=== PATIENT | female | born 1945 | race Caucasian/White ===

== ENCOUNTER 2017-04-11 14:38 | Emergency (ER) | payer MEDICARE, BC ==
[2017-04-11] MEDS: HYDROCODONE/APAP (5/325) TAB PO (16:15)
== END 2017-04-11 19:59 | disposition home or self-care (01) ==
LOC: FTE 14:38
DX: S42.211A Unspecified displaced fracture of surgical neck of right humerus, initial encounter for closed fracture (principal); E03.9 Hypothyroidism, unspecified; E11.9 Type 2 diabetes mellitus without complications; I10 Essential (primary) hypertension; I50.9 Heart failure, unspecified; W18.39XA Other fall on same level, initial encounter; Y92.9 Unspecified place or not applicable; Z79.84 Long term (current) use of oral hypoglycemic drugs
CPT/HCPCS: 72050; 73030-RT; 73562; 99284-25

== ENCOUNTER 2018-04-15 16:58 | Inpatient (IN) | payer MEDICARE, BC ==
[2018-04-15 18:23] LABS: ADD MAN DIFF? NO
[2018-04-15 18:29] LABS: ABNORMAL IP MESSAGE 1; BASOPHIL # 0.1 10^3/ul (0.0-0.1); BASOPHILS % 0.4 % (0.0-2.0); EOSINOPHILS % 0.2 % (0.0-7.0); HEMATOCRIT 33.8 % (37.0-47.0); HEMOGLOBIN 9.8 g/dl (12.0-16.0); LYMPHOCYTES # 0.7 10^3/ul (0.8-2.9); LYMPHOCYTES % 4.4 % (15.0-51.0); MEAN CORPUSCULAR HEMOGLOBIN 23.8 pg (29.0-33.0); MEAN PLATELET VOLUME 10.9 fl (7.4-10.4); MONOCYTE # 1.6 10^3/ul (0.3-0.9); MONOCYTES % 9.5 % (0.0-11.0); NEUTROPHIL # 14.3 10^3/ul (1.6-7.5); NEUTROPHILS % 84.9 % (39.0-77.0); PLATELET COUNT 418 10^3/UL (140-415); RED BLOOD COUNT 4.12 10^6/ul (4.20-5.40); RED CELL DISTRIBUTION WIDTH 19.5 % (11.5-14.5)
[2018-04-15 18:29] LABS: WHITE BLOOD COUNT 16.9 10^3/ul (4.8-10.8)
[2018-04-15] MEDS: ALBUTEROL 0.083% (NEB) 2.5 MG/3 ML AMP NEB (18:29)
[2018-04-15] MEDS: IPRATROPIUM (NEB) 0.5 MG/2.5 ML AMP NEB (18:29)
[2018-04-15 18:33] LABS: POSITIVE DIFF @See below
[2018-04-15] MEDS: ONDANSETRON 4 MG INJ IV (18:36)
[2018-04-15] MEDS: morphine 2 MG INJ IV (18:36)
[2018-04-15] MEDS: SOD CHLORIDE 0.9% 500 ML IV ×2 (18:36→22:43)
[2018-04-15 18:44] LABS: PROTIME 15.3 Sec (11.9-14.9); PT RATIO 1.2
[2018-04-15 18:45] LABS: PARTIAL THROMBOPLASTIN TIME 31.8 Sec (23.0-35.0)
[2018-04-15 18:48] LABS: ALANINE AMINOTRANSFERASE 12 IU/L (13-69); ALBUMIN 3.7 g/dl (3.3-4.9); ALBUMIN/GLOBULIN RATIO 1.02; ALKALINE PHOSPHATASE 89 IU/L (42-121); ANION GAP 9 (5-13); ASPARTATE AMINO TRANSFERASE 13 IU/L (15-46); BILIRUBIN,INDIRECT 0.4 mg/dl (0-1.1); BILIRUBIN,TOTAL 0.4 mg/dl (0.2-1.3); BLOOD UREA NITROGEN 13 mg/dl (7-20); CALCIUM 8.6 mg/dl (8.4-10.2); CARBON DIOXIDE 29 mmol/L (21-31); CHLORIDE 102 mmol/L (97-110); CREATINE KINASE 32 IU/L (23-200); CREATININE 0.69 mg/dl (0.44-1.00); GLUCOSE 163 mg/dl (70-220); POTASSIUM 3.7 mmol/L (3.5-5.1); SODIUM 140 mmol/L (135-144); TOTAL PROTEIN 7.3 g/dl (6.1-8.1)
[2018-04-15] MEDS: PIPER-TAZO 3.375 GM IV (PMX) 100 ML IVPB (18:48)
[2018-04-15 18:59] LABS: B-TYPE NATRIURETIC PEPTIDE 2780 PG/ML (0-125); CK INDEX 3.1; CK-MB 0.99 ng/ml (0.0-2.4); TROPONIN-I < 0.012 ng/ml (0.000-0.120)
[2018-04-15] MEDS: VANCOMYCIN 1 GM (PMX) 250 ML IVPB (19:34)
[2018-04-15] MEDS: SOD CHLORIDE 0.9% 1,000 ML IV (20:16)
[2018-04-15] MEDS ORDERED: DOCUSATE SODIUM 100 MG CAP PO (20:30)
[2018-04-15] MEDS ORDERED: NITROGLYCERIN (SL) 0.4 MG TAB SL (20:30)
[2018-04-15] MEDS ORDERED: NACL 0.9% 3 ML SYG IV (20:30)
[2018-04-15] MEDS ORDERED: ALBUTEROL 0.083% (NEB) 2.5 MG/3 ML AMP NEB (20:30)
[2018-04-15] MEDS ORDERED: DICYCLOMINE 10 MG CAP PO (20:30)
[2018-04-15] MEDS ORDERED: ACETAMINOPHEN 325 MG TAB PO ×2 (20:30→21:30)
[2018-04-15] MEDS ORDERED: ONDANSETRON 4 MG INJ IV ×2 (20:30)
[2018-04-15 21:24] LABS: ADD UMIC YES; UR ASCORBIC ACID NEGATIVE (NEGATIVE); UR BACTERIA MODERATE /HPF (NONE SEEN); UR BILIRUBIN (Dip) NEGATIVE (NEGATIVE); UR BLOOD (Dip) 1+ mg/dL (NEGATIVE); UR CLARITY CLOUDY (CLEAR); UR COLOR YELLOW (YELLOW); UR GLUCOSE (Dip) NEGATIVE (NEGATIVE); UR KETONES (Dip) NEGATIVE (NEGATIVE); UR LEUKOCYTE ESTERASE (Dip) 2+ Leu/ul (NEGATIVE); UR MUCUS FEW /HPF (NONE SEEN); UR NITRITE (Dip) NEGATIVE (NEGATIVE); UR RBC 12 /HPF (0-5); UR SPECIFIC GRAVITY (Dip) 1.017 (1.003-1.030); UR TOTAL PROTEIN (Dip) 1+ mg/dl (NEGATIVE); UR UROBILINOGEN (Dip) NEGATIVE (NEGATIVE); UR WBC > 182 /HPF (0-5)
[2018-04-15] MEDS: ATORVASTATIN 20 MG TAB PO (21:55)
[2018-04-16] MEDS: ALBUMIN HUMAN 25% 100 ML IV ×2 (00:26→01:56)
[2018-04-16 00:57] LABS: TROPONIN-I < 0.012 ng/ml (0.000-0.120)
[2018-04-16] MEDS ORDERED: GLUCOSE GEL 15 GRAM TUBE PO ×2 (04:00)
[2018-04-16] MEDS ORDERED: GLUCAGON 1 MG INJ IM (04:00)
[2018-04-16] MEDS ORDERED: GLUCOSE GEL 15 GRAM TUBE BUCCAL (04:00)
[2018-04-16] MEDS ORDERED: DEXTROSE 50% 50 ML SYRINGE IV ×2 (04:00)
[2018-04-16] MEDS: SOD CHLORIDE 0.9% 1,000 ML IV (04:00)
[2018-04-16] MEDS: SOD CHLORIDE 0.9% 250 ML IV (04:39)
[2018-04-16 06:23] LABS: ADD MAN DIFF? NO
[2018-04-16 06:31] LABS: WHITE BLOOD COUNT 13.3 10^3/ul (4.8-10.8)
[2018-04-16 06:31] LABS: ABNORMAL IP MESSAGE 1; BASOPHIL # 0.1 10^3/ul (0.0-0.1); BASOPHILS % 0.5 % (0.0-2.0); EOSINOPHILS # 0.1 10^3/ul (0.0-0.5); EOSINOPHILS % 0.4 % (0.0-7.0); HEMATOCRIT 29.1 % (37.0-47.0); HEMOGLOBIN 8.4 g/dl (12.0-16.0); LYMPHOCYTES # 0.4 10^3/ul (0.8-2.9); LYMPHOCYTES % 2.9 % (15.0-51.0); MEAN CORPUSCULAR HEMOGLOBIN 24.1 pg (29.0-33.0); MEAN CORPUSCULAR HGB CONC 28.9 g/dl (32.0-37.0); MEAN CORPUSCULAR VOLUME 83.6 fl (82.0-101.0); MEAN PLATELET VOLUME 11.1 fl (7.4-10.4); MONOCYTE # 1.7 10^3/ul (0.3-0.9); MONOCYTES % 12.4 % (0.0-11.0); NEUTROPHIL # 11.1 10^3/ul (1.6-7.5); NEUTROPHILS % 83.3 % (39.0-77.0); PLATELET COUNT 324 10^3/UL (140-415); RED BLOOD COUNT 3.48 10^6/ul (4.20-5.40); RED CELL DISTRIBUTION WIDTH 19.5 % (11.5-14.5)
[2018-04-16 06:41] LABS: POSITIVE DIFF @See below
[2018-04-16 07:15] LABS: ALANINE AMINOTRANSFERASE 7 IU/L (13-69); ALBUMIN 3.7 g/dl (3.3-4.9); ALBUMIN/GLOBULIN RATIO 1.19; ALKALINE PHOSPHATASE 74 IU/L (42-121); ANION GAP 13 (5-13); ASPARTATE AMINO TRANSFERASE 12 IU/L (15-46); BILIRUBIN,INDIRECT 0.7 mg/dl (0-1.1); BILIRUBIN,TOTAL 0.7 mg/dl (0.2-1.3); BLOOD UREA NITROGEN 17 mg/dl (7-20); CALCIUM 8.2 mg/dl (8.4-10.2); CARBON DIOXIDE 23 mmol/L (21-31); CHLORIDE 105 mmol/L (97-110); CREATININE 0.93 mg/dl (0.44-1.00); GLUCOSE 159 mg/dl (70-220); SODIUM 141 mmol/L (135-144); TOTAL PROTEIN 6.8 g/dl (6.1-8.1)
[2018-04-16 07:21] LABS: B-TYPE NATRIURETIC PEPTIDE 2760 PG/ML (0-125)
[2018-04-16 07:22] LABS: TROPONIN-I < 0.012 ng/ml (0.000-0.120)
[2018-04-16] MEDS: ASPIRIN (EC) 325 MG TAB PO (08:14)
[2018-04-16] MEDS: INSULIN ASPART [NOVOLOG] 3 ML PEN SC ×4 (08:17→21:29)
[2018-04-16] MEDS: ENOXAPARIN 40 MG/0.4 ML SYG SC (08:22)
[2018-04-16] MEDS: ACETAMINOPHEN 325 MG TAB PO (09:27)
[2018-04-16] MEDS: PIPER-TAZO 3.375 GM IV (PMX) 100 ML IVPB ×2 (14:12→21:10)
[2018-04-16] MEDS: ALBUTEROL 0.083% (NEB) 2.5 MG/3 ML AMP NEB (20:48)
[2018-04-16] MEDS: ZOLPIDEM 5 MG TAB PO (21:09)
[2018-04-16] MEDS: ATORVASTATIN 20 MG TAB PO (21:09)
[2018-04-16] MEDS: DOCUSATE SODIUM 100 MG CAP PO (21:10)
[2018-04-17] MEDS ORDERED: VANCOMYCIN IV PER PHARMACY XX (02:00)
[2018-04-17] MEDS: ACCU-CHEK XX (02:00)
[2018-04-17] MEDS: VANCOMYCIN 1 GM 250 ML IVPB (02:01)
[2018-04-17] MEDS ORDERED: LORAZEPAM 2 MG INJ (04:09)
[2018-04-17] MEDS: LORAZEPAM 2 MG INJ IV (04:16)
[2018-04-17] MEDS: LEVOTHYROXINE 100 MCG TAB PO (05:46)
[2018-04-17] MEDS: PIPER-TAZO 3.375 GM IV (PMX) 100 ML IVPB ×3 (05:46→21:36)
[2018-04-17 07:02] LABS: ADD MAN DIFF? NO
[2018-04-17 07:05] LABS: ABNORMAL IP MESSAGE 1; BASOPHIL # 0.1 10^3/ul (0.0-0.1); BASOPHILS % 0.3 % (0.0-2.0); EOSINOPHILS % 0.1 % (0.0-7.0); HEMATOCRIT 29.7 % (37.0-47.0); HEMOGLOBIN 8.6 g/dl (12.0-16.0); LYMPHOCYTES # 0.4 10^3/ul (0.8-2.9); LYMPHOCYTES % 2.3 % (15.0-51.0); MEAN PLATELET VOLUME 11.1 fl (7.4-10.4); MONOCYTE # 1.6 10^3/ul (0.3-0.9); MONOCYTES % 9.8 % (0.0-11.0); NEUTROPHIL # 14.4 10^3/ul (1.6-7.5); NEUTROPHILS % 86.8 % (39.0-77.0); PLATELET COUNT 358 10^3/UL (140-415); RED BLOOD COUNT 3.58 10^6/ul (4.20-5.40); RED CELL DISTRIBUTION WIDTH 19.3 % (11.5-14.5)
[2018-04-17 07:05] LABS: WHITE BLOOD COUNT 16.6 10^3/ul (4.8-10.8)
[2018-04-17 07:07] LABS: POSITIVE DIFF @See below
[2018-04-17 07:30] LABS: ALANINE AMINOTRANSFERASE 20 IU/L (13-69); ALBUMIN 3.2 g/dl (3.3-4.9); ALBUMIN/GLOBULIN RATIO 1.03; ALKALINE PHOSPHATASE 62 IU/L (42-121); ANION GAP 6 (5-13); ASPARTATE AMINO TRANSFERASE 26 IU/L (15-46); BILIRUBIN,INDIRECT 0.4 mg/dl (0-1.1); BILIRUBIN,TOTAL 0.4 mg/dl (0.2-1.3); BLOOD UREA NITROGEN 19 mg/dl (7-20); CARBON DIOXIDE 24 mmol/L (21-31); CHLORIDE 108 mmol/L (97-110); CREATININE 0.79 mg/dl (0.44-1.00); GLUCOSE 163 mg/dl (70-220); POTASSIUM 4.3 mmol/L (3.5-5.1); SODIUM 138 mmol/L (135-144); TOTAL PROTEIN 6.3 g/dl (6.1-8.1)
[2018-04-17 07:38] LABS: B-TYPE NATRIURETIC PEPTIDE 5160 PG/ML (0-125)
[2018-04-17] MEDS: ALBUTEROL 0.083% (NEB) 2.5 MG/3 ML AMP NEB ×3 (08:02→20:01)
[2018-04-17] MEDS: INSULIN ASPART [NOVOLOG] 3 ML PEN SC ×4 (08:22→21:38)
[2018-04-17] MEDS: DOCUSATE SODIUM 100 MG CAP PO ×2 (09:03→20:26)
[2018-04-17] MEDS: ASPIRIN (EC) 325 MG TAB PO (09:03)
[2018-04-17] MEDS: FUROSEMIDE 20 MG INJ IV (09:04)
[2018-04-17] MEDS: ENOXAPARIN 40 MG/0.4 ML SYG SC (09:29)
[2018-04-17] MEDS: FUROSEMIDE 40 MG INJ IV ×2 (10:17→17:41)
[2018-04-17] MEDS: POTASSIUM CHLORIDE (SR) 20 MEQ TAB PO ×2 (10:17→20:27)
[2018-04-17 10:41] LABS: AADO2 Arterial 142.2 mmHg (7.0-24.0); Allen Test ACCEPTAB; Arterial Base Excess -4.2 mmol/L (-3.0-3); Arterial Blood Gas Oxygen Sat 95.3 mmHG (95.0-100.0); Arterial COHb 0.8 % (0.0-3.0); Arterial Fraction of Oxyhgb 94.4 % (93.0-99.0); Arterial HCO3 22.2 mmol/L (22.0-26.0); Arterial MetHb 0.1 % (0.0-1.5); Arterial pCO2 46.3 mmhg (35-45); MODE NASAL CANNULA; Site Right Radial
[2018-04-17 11:42] LABS: TROPONIN-I < 0.012 ng/ml (0.000-0.120)
[2018-04-17 14:31] LABS: AADO2 Arterial 212.3 mmHg (7.0-24.0); Allen Test ACCEPTAB; Arterial Base Excess -0.1 mmol/L (-3.0-3); Arterial Blood Gas Oxygen Sat 97.6 mmHG (95.0-100.0); Arterial COHb 0.7 % (0.0-3.0); Arterial Fraction of Oxyhgb 96.8 % (93.0-99.0); Arterial HCO3 24.6 mmol/L (22.0-26.0); Arterial MetHb 0.1 % (0.0-1.5); Arterial pCO2 40.1 mmhg (35-45); Blood Gas IEPAP 16/6; Blood Gas PS 10; MODE MASK - BIPAP; Site Right Radial
[2018-04-17] MEDS: SOD CHLORIDE 0.9% 100 ML (15:07)
[2018-04-17] MEDS: IOHEXOL 100 ML (15:07)
[2018-04-17] MEDS: VANCOMYCIN 750 MG (PMX) 250 ML IVPB (16:45)
[2018-04-17] MEDS: ATORVASTATIN 20 MG TAB PO (20:27)
[2018-04-17] MEDS: ZOLPIDEM 5 MG TAB PO (22:42)
[2018-04-18] MEDS: ALBUTEROL 0.083% (NEB) 2.5 MG/3 ML AMP NEB ×4 (01:42→19:27)
[2018-04-18] MEDS ORDERED: VANCOMYCIN HCL 1.25 GM in SOD CHLORIDE 0.9% 250 ML IVPB (02:00)
[2018-04-18] MEDS: ACCU-CHEK XX (02:49)
[2018-04-18] MEDS: VANCOMYCIN 750 MG (PMX) 250 ML IVPB ×2 (04:19→17:09)
[2018-04-18 04:50] LABS: ADD MAN DIFF? NO
[2018-04-18 04:52] LABS: ABNORMAL IP MESSAGE 1; BASOPHIL # 0.1 10^3/ul (0.0-0.1); BASOPHILS % 0.4 % (0.0-2.0); EOSINOPHILS # 0.1 10^3/ul (0.0-0.5); HEMATOCRIT 29.1 % (37.0-47.0); HEMOGLOBIN 8.4 g/dl (12.0-16.0); LYMPHOCYTES # 0.7 10^3/ul (0.8-2.9); LYMPHOCYTES % 5.2 % (15.0-51.0); MEAN CORPUSCULAR HEMOGLOBIN 23.9 pg (29.0-33.0); MEAN CORPUSCULAR HGB CONC 28.9 g/dl (32.0-37.0); MEAN CORPUSCULAR VOLUME 82.7 fl (82.0-101.0); MEAN PLATELET VOLUME 10.3 fl (7.4-10.4); MONOCYTE # 1.4 10^3/ul (0.3-0.9); MONOCYTES % 10.8 % (0.0-11.0); NEUTROPHILS % 82.1 % (39.0-77.0); PLATELET COUNT 336 10^3/UL (140-415); RED BLOOD COUNT 3.52 10^6/ul (4.20-5.40); RED CELL DISTRIBUTION WIDTH 19.3 % (11.5-14.5)
[2018-04-18 04:52] LABS: WHITE BLOOD COUNT 13.4 10^3/ul (4.8-10.8)
[2018-04-18 05:03] LABS: POSITIVE DIFF @See below
[2018-04-18] MEDS: FUROSEMIDE 40 MG INJ IV ×2 (05:11→17:09)
[2018-04-18] MEDS: LEVOTHYROXINE 100 MCG TAB PO (05:11)
[2018-04-18] MEDS: PIPER-TAZO 3.375 GM IV (PMX) 100 ML IVPB (05:11)
[2018-04-18 05:13] LABS: CHOL/HDL RATIO 2.6 RATIO; CHOLESTEROL 62 mg/dl (100-200); HDL CHOLESTEROL 23 mg/dl (33-92); LDL CHOLESTEROL,CALCULATED 26 mg/dl; TRIGLYCERIDES 64 mg/dl (0-149)
[2018-04-18 05:13] LABS: PHOSPHORUS 3.5 mg/dl (2.5-4.9)
[2018-04-18 05:14] LABS: ANION GAP 6 (5-13); BLOOD UREA NITROGEN 17 mg/dl (7-20); CALCIUM 8.3 mg/dl (8.4-10.2); CARBON DIOXIDE 28 mmol/L (21-31); CHLORIDE 107 mmol/L (97-110); GLUCOSE 133 mg/dl (70-220); MAGNESIUM 1.5 mg/dl (1.7-2.5); POTASSIUM 3.4 mmol/L (3.5-5.1); SODIUM 141 mmol/L (135-144)
[2018-04-18 05:21] LABS: B-TYPE NATRIURETIC PEPTIDE 4440 PG/ML (0-125)
[2018-04-18] MEDS: POTASSIUM CHLORIDE (SR) 20 MEQ TAB PO ×2 (05:51→21:00)
[2018-04-18 07:03] LABS: TROPONIN-I 0.014 ng/ml (0.000-0.120)
[2018-04-18] MEDS: POTASSIUM CHLORIDE 100 ML IVPB ×3 (09:26→17:13)
[2018-04-18] MEDS: ASPIRIN (EC) 325 MG TAB PO (09:32)
[2018-04-18] MEDS: DOCUSATE SODIUM 100 MG CAP PO ×2 (09:32→21:00)
[2018-04-18] MEDS: ENOXAPARIN 40 MG/0.4 ML SYG SC (09:35)
[2018-04-18 09:47] LABS: AADO2 Arterial 120.4 mmHg (7.0-24.0); Allen Test ACCEPTAB; Arterial Blood Gas Oxygen Sat 96.1 mmHG (95.0-100.0); Arterial COHb 0.2 % (0.0-3.0); Arterial Fraction of Oxyhgb 95.7 % (93.0-99.0); Arterial HCO3 26.8 mmol/L (22.0-26.0); Arterial MetHb 0.2 % (0.0-1.5); Arterial pCO2 43.1 mmhg (35-45); MODE NASAL CANNULA; Site Right Radial
[2018-04-18] MEDS: INSULIN ASPART [NOVOLOG] 3 ML PEN SC ×4 (09:52→21:00)
[2018-04-18] MEDS: MAGNESIUM SULFATE 3 GM in DEXTROSE 5% 100 ML IVPB (11:49)
[2018-04-18] MEDS ORDERED: PANTOPRAZOLE 40 MG INJ (11:58)
[2018-04-18] MEDS: FAMOTIDINE 20 MG INJ IV (12:00)
[2018-04-18] MEDS: MEROPENEM 1 GM/50ML(PMX) 50 ML IVPB ×2 (14:22→21:06)
[2018-04-18 15:35] LABS: VANCOMYCIN,TROUGH 13.5 ug/ml (10.0-20.0)
[2018-04-18 20:14] LABS: POTASSIUM 4.2 mmol/L (3.5-5.1)
[2018-04-18] MEDS: ATORVASTATIN 10 MG TAB PO (21:00)
[2018-04-19] MEDS: ACCU-CHEK XX (02:00)
[2018-04-19] MEDS: VANCOMYCIN 750 MG (PMX) 250 ML IVPB (04:21)
[2018-04-19 04:51] LABS: ADD MAN DIFF? NO
[2018-04-19 04:55] LABS: ABNORMAL IP MESSAGE 1; BASOPHIL # 0.1 10^3/ul (0.0-0.1); BASOPHILS % 0.7 % (0.0-2.0); EOSINOPHILS # 0.2 10^3/ul (0.0-0.5); EOSINOPHILS % 1.6 % (0.0-7.0); HEMATOCRIT 32.6 % (37.0-47.0); HEMOGLOBIN 9.5 g/dl (12.0-16.0); LYMPHOCYTES # 0.5 10^3/ul (0.8-2.9); MEAN CORPUSCULAR HEMOGLOBIN 23.8 pg (29.0-33.0); MEAN CORPUSCULAR HGB CONC 29.1 g/dl (32.0-37.0); MEAN CORPUSCULAR VOLUME 81.5 fl (82.0-101.0); MEAN PLATELET VOLUME 10.9 fl (7.4-10.4); MONOCYTE # 1.2 10^3/ul (0.3-0.9); NEUTROPHIL # 10.9 10^3/ul (1.6-7.5); NEUTROPHILS % 84.4 % (39.0-77.0); PLATELET COUNT 393 10^3/UL (140-415); RED CELL DISTRIBUTION WIDTH 19.3 % (11.5-14.5)
[2018-04-19 04:55] LABS: WHITE BLOOD COUNT 12.9 10^3/ul (4.8-10.8)
[2018-04-19 05:07] LABS: POSITIVE DIFF @See below
[2018-04-19] MEDS: LEVOTHYROXINE 100 MCG TAB PO (05:37)
[2018-04-19] MEDS: MEROPENEM 1 GM/50ML(PMX) 50 ML IVPB ×3 (05:37→21:11)
[2018-04-19] MEDS: FUROSEMIDE 40 MG INJ IV ×2 (05:37→17:31)
[2018-04-19 05:41] LABS: ALANINE AMINOTRANSFERASE 27 IU/L (13-69); ALBUMIN 3.7 g/dl (3.3-4.9); ALBUMIN/GLOBULIN RATIO 1.02; ALKALINE PHOSPHATASE 90 IU/L (42-121); ANION GAP 13 (5-13); ASPARTATE AMINO TRANSFERASE 47 IU/L (15-46); BILIRUBIN,INDIRECT 0.5 mg/dl (0-1.1); BILIRUBIN,TOTAL 0.5 mg/dl (0.2-1.3); BLOOD UREA NITROGEN 16 mg/dl (7-20); CALCIUM 8.9 mg/dl (8.4-10.2); CARBON DIOXIDE 28 mmol/L (21-31); CHLORIDE 102 mmol/L (97-110); CREATININE 0.73 mg/dl (0.44-1.00); GLUCOSE 150 mg/dl (70-220); MAGNESIUM 1.9 mg/dl (1.7-2.5); PHOSPHORUS 3.7 mg/dl (2.5-4.9); POTASSIUM 4.1 mmol/L (3.5-5.1); SODIUM 143 mmol/L (135-144); TOTAL PROTEIN 7.3 g/dl (6.1-8.1)
[2018-04-19 05:48] LABS: B-TYPE NATRIURETIC PEPTIDE 7320 PG/ML (0-125)
[2018-04-19] MEDS: INSULIN ASPART [NOVOLOG] 3 ML PEN SC ×4 (07:35→21:00)
[2018-04-19] MEDS: ALBUTEROL 0.083% (NEB) 2.5 MG/3 ML AMP NEB ×3 (08:49→19:59)
[2018-04-19] MEDS: DOCUSATE SODIUM 100 MG CAP PO ×2 (09:00→20:16)
[2018-04-19] MEDS: ASPIRIN (EC) 325 MG TAB PO (09:00)
[2018-04-19] MEDS: POTASSIUM CHLORIDE (SR) 20 MEQ TAB PO ×2 (09:00→20:16)
[2018-04-19] MEDS: FAMOTIDINE 20 MG INJ IV (09:43)
[2018-04-19] MEDS: ENOXAPARIN 40 MG/0.4 ML SYG SC (09:50)
[2018-04-19] MEDS: ATORVASTATIN 10 MG TAB PO (20:16)
[2018-04-20] MEDS: ACCU-CHEK XX (02:00)
[2018-04-20 04:54] LABS: Allen Test ACCEPTAB; Arterial Base Excess 6.7 mmol/L (-3.0-3); Arterial Blood Gas Oxygen Sat 94.5 mmHG (95.0-100.0); Arterial Fraction of Oxyhgb 93.4 % (93.0-99.0); Arterial HCO3 30.9 mmol/L (22.0-26.0); Arterial MetHb 0.2 % (0.0-1.5); Arterial pCO2 42.4 mmhg (35-45); MODE NASAL CANNULA; Site Right Radial
[2018-04-20 04:55] LABS: ADD MAN DIFF? NO
[2018-04-20 04:57] LABS: WHITE BLOOD COUNT 11.1 10^3/ul (4.8-10.8)
[2018-04-20 04:57] LABS: BASOPHIL # 0.1 10^3/ul (0.0-0.1); BASOPHILS % 0.7 % (0.0-2.0); EOSINOPHILS # 0.4 10^3/ul (0.0-0.5); EOSINOPHILS % 3.4 % (0.0-7.0); HEMATOCRIT 32.7 % (37.0-47.0); HEMOGLOBIN 9.6 g/dl (12.0-16.0); LYMPHOCYTES # 0.8 10^3/ul (0.8-2.9); LYMPHOCYTES % 7.4 % (15.0-51.0); MEAN CORPUSCULAR HEMOGLOBIN 24.1 pg (29.0-33.0); MEAN CORPUSCULAR HGB CONC 29.4 g/dl (32.0-37.0); MEAN CORPUSCULAR VOLUME 82.2 fl (82.0-101.0); MEAN PLATELET VOLUME 10.9 fl (7.4-10.4); MONOCYTE # 1.1 10^3/ul (0.3-0.9); MONOCYTES % 10.2 % (0.0-11.0); NEUTROPHIL # 8.6 10^3/ul (1.6-7.5); PLATELET COUNT 362 10^3/UL (140-415); RED BLOOD COUNT 3.98 10^6/ul (4.20-5.40)
[2018-04-20 05:28] LABS: ANION GAP 7 (5-13); BLOOD UREA NITROGEN 19 mg/dl (7-20); CALCIUM 8.7 mg/dl (8.4-10.2); CARBON DIOXIDE 36 mmol/L (21-31); CHLORIDE 101 mmol/L (97-110); CREATININE 0.66 mg/dl (0.44-1.00); GLUCOSE 135 mg/dl (70-220); POTASSIUM 3.4 mmol/L (3.5-5.1); SODIUM 144 mmol/L (135-144)
[2018-04-20] MEDS: LEVOTHYROXINE 100 MCG TAB PO (05:29)
[2018-04-20] MEDS: MEROPENEM 1 GM/50ML(PMX) 50 ML IVPB ×3 (05:32→21:12)
[2018-04-20] MEDS: FUROSEMIDE 40 MG INJ IV (05:33)
[2018-04-20] MEDS: INSULIN ASPART [NOVOLOG] 3 ML PEN SC ×4 (07:35→21:00)
[2018-04-20] MEDS: FAMOTIDINE 20 MG INJ IV (07:57)
[2018-04-20] MEDS: ENOXAPARIN 40 MG/0.4 ML SYG SC (08:20)
[2018-04-20] MEDS: DOCUSATE SODIUM 100 MG CAP PO ×2 (08:25→20:45)
[2018-04-20] MEDS: ASPIRIN (EC) 325 MG TAB PO (08:25)
[2018-04-20] MEDS: POTASSIUM CHLORIDE (SR) 20 MEQ TAB PO ×2 (08:25→20:45)
[2018-04-20] MEDS: ALBUTEROL 0.083% (NEB) 2.5 MG/3 ML AMP NEB ×3 (08:34→20:03)
[2018-04-20] MEDS: MAGNESIUM OXIDE 400 MG TAB PO (12:30)
[2018-04-20] MEDS: FUROSEMIDE 40 MG TAB PO (17:42)
[2018-04-20] MEDS: ATORVASTATIN 10 MG TAB PO (20:45)
[2018-04-21] MEDS: ACCU-CHEK XX (01:50)
[2018-04-21] MEDS: MEROPENEM 1 GM/50ML(PMX) 50 ML IVPB ×3 (05:19→21:30)
[2018-04-21] MEDS: LEVOTHYROXINE 100 MCG TAB PO (05:22)
[2018-04-21] MEDS: FUROSEMIDE 40 MG TAB PO (05:22)
[2018-04-21 06:00] LABS: ADD MAN DIFF? NO
[2018-04-21 06:04] LABS: WHITE BLOOD COUNT 10.8 10^3/ul (4.8-10.8)
[2018-04-21 06:04] LABS: ABNORMAL IP MESSAGE 1; BASOPHIL # 0.1 10^3/ul (0.0-0.1); BASOPHILS % 0.8 % (0.0-2.0); EOSINOPHILS # 0.4 10^3/ul (0.0-0.5); HEMATOCRIT 35.5 % (37.0-47.0); HEMOGLOBIN 10.1 g/dl (12.0-16.0); LYMPHOCYTES # 0.7 10^3/ul (0.8-2.9); LYMPHOCYTES % 6.1 % (15.0-51.0); MEAN CORPUSCULAR HEMOGLOBIN 23.6 pg (29.0-33.0); MEAN CORPUSCULAR HGB CONC 28.5 g/dl (32.0-37.0); MEAN CORPUSCULAR VOLUME 82.9 fl (82.0-101.0); MEAN PLATELET VOLUME 10.3 fl (7.4-10.4); MONOCYTE # 1.1 10^3/ul (0.3-0.9); MONOCYTES % 10.1 % (0.0-11.0); NEUTROPHIL # 8.5 10^3/ul (1.6-7.5); NEUTROPHILS % 78.6 % (39.0-77.0); PLATELET COUNT 370 10^3/UL (140-415); RED BLOOD COUNT 4.28 10^6/ul (4.20-5.40); RED CELL DISTRIBUTION WIDTH 19.2 % (11.5-14.5)
[2018-04-21 06:13] LABS: POSITIVE DIFF @See below
[2018-04-21 06:53] LABS: ANION GAP 13 (5-13); BLOOD UREA NITROGEN 19 mg/dl (7-20); CARBON DIOXIDE 34 mmol/L (21-31); CHLORIDE 101 mmol/L (97-110); CREATININE 0.63 mg/dl (0.44-1.00); GLUCOSE 128 mg/dl (70-220); POTASSIUM 3.2 mmol/L (3.5-5.1); SODIUM 148 mmol/L (135-144)
[2018-04-21] MEDS: INSULIN ASPART [NOVOLOG] 3 ML PEN SC ×4 (08:00→21:00)
[2018-04-21] MEDS: FAMOTIDINE 20 MG INJ IV (08:34)
[2018-04-21] MEDS: ALBUTEROL 0.083% (NEB) 2.5 MG/3 ML AMP NEB ×3 (08:42→20:00)
[2018-04-21] MEDS: ENOXAPARIN 40 MG/0.4 ML SYG SC (08:48)
[2018-04-21] MEDS: ASPIRIN (EC) 325 MG TAB PO (09:00)
[2018-04-21] MEDS: POTASSIUM CHLORIDE (SR) 20 MEQ TAB PO ×2 (09:00→21:29)
[2018-04-21] MEDS: MAGNESIUM OXIDE 400 MG TAB PO (09:00)
[2018-04-21] MEDS: DOCUSATE SODIUM 100 MG CAP PO ×2 (09:00→21:30)
[2018-04-21] MEDS: MAGNESIUM SULFATE 2 GM/50 ML 50 ML IVPB (10:47)
[2018-04-21] MEDS: POTASSIUM CHLORIDE 100 ML IVPB ×3 (13:50→19:08)
[2018-04-21] MEDS: METOPROLOL 5 MG INJ IV ×2 (15:04→21:31)
[2018-04-21] MEDS: FUROSEMIDE 40 MG INJ IV (18:06)
[2018-04-21] MEDS: ATORVASTATIN 10 MG TAB PO (21:30)
[2018-04-21] MEDS: ACETAMINOPHEN 325 MG TAB PO (21:30)
[2018-04-22] MEDS: ZOLPIDEM 5 MG TAB PO (01:01)
[2018-04-22] MEDS: ACCU-CHEK XX (01:48)
[2018-04-22] MEDS: MEROPENEM 1 GM/50ML(PMX) 50 ML IVPB ×3 (05:09→21:20)
[2018-04-22] MEDS: METOPROLOL 5 MG INJ IV ×3 (05:10→21:16)
[2018-04-22] MEDS: FUROSEMIDE 40 MG INJ IV ×2 (05:10→17:09)
[2018-04-22] MEDS: LEVOTHYROXINE 100 MCG TAB PO (05:11)
[2018-04-22 05:29] LABS: ADD MAN DIFF? NO
[2018-04-22 05:39] LABS: WHITE BLOOD COUNT 12.1 10^3/ul (4.8-10.8)
[2018-04-22 05:40] LABS: BASOPHIL # 0.1 10^3/ul (0.0-0.1); BASOPHILS % 0.8 % (0.0-2.0); EOSINOPHILS # 0.3 10^3/ul (0.0-0.5); EOSINOPHILS % 2.8 % (0.0-7.0); HEMATOCRIT 35.1 % (37.0-47.0); HEMOGLOBIN 10.4 g/dl (12.0-16.0); LYMPHOCYTES % 8.3 % (15.0-51.0); MEAN CORPUSCULAR HEMOGLOBIN 24.1 pg (29.0-33.0); MEAN CORPUSCULAR HGB CONC 29.6 g/dl (32.0-37.0); MEAN CORPUSCULAR VOLUME 81.3 fl (82.0-101.0); MEAN PLATELET VOLUME 10.3 fl (7.4-10.4); MONOCYTE # 1.1 10^3/ul (0.3-0.9); MONOCYTES % 9.4 % (0.0-11.0); NEUTROPHIL # 9.5 10^3/ul (1.6-7.5); NEUTROPHILS % 78.1 % (39.0-77.0); PLATELET COUNT 395 10^3/UL (140-415); RED BLOOD COUNT 4.32 10^6/ul (4.20-5.40)
[2018-04-22 06:10] LABS: MAGNESIUM 2.2 mg/dl (1.7-2.5)
[2018-04-22 06:18] LABS: ANION GAP 9 (5-13); BLOOD UREA NITROGEN 23 mg/dl (7-20); CARBON DIOXIDE 36 mmol/L (21-31); CHLORIDE 99 mmol/L (97-110); CREATININE 0.81 mg/dl (0.44-1.00); GLUCOSE 159 mg/dl (70-220); POTASSIUM 3.7 mmol/L (3.5-5.1); SODIUM 144 mmol/L (135-144)
[2018-04-22 06:20] LABS: B-TYPE NATRIURETIC PEPTIDE 6840 PG/ML (0-125)
[2018-04-22] MEDS: DOCUSATE SODIUM 100 MG CAP PO ×2 (07:59→21:15)
[2018-04-22] MEDS: ASPIRIN (EC) 325 MG TAB PO (07:59)
[2018-04-22] MEDS: POTASSIUM CHLORIDE (SR) 20 MEQ TAB PO ×2 (07:59→21:15)
[2018-04-22] MEDS: MAGNESIUM OXIDE 400 MG TAB PO (07:59)
[2018-04-22] MEDS: INSULIN ASPART [NOVOLOG] 3 ML PEN SC ×4 (08:04→21:39)
[2018-04-22] MEDS: ENOXAPARIN 40 MG/0.4 ML SYG SC (08:04)
[2018-04-22] MEDS: FAMOTIDINE 20 MG TAB PO (08:18)
[2018-04-22] MEDS: ALBUTEROL 0.083% (NEB) 2.5 MG/3 ML AMP NEB ×3 (09:37→21:39)
[2018-04-22] MEDS: ATORVASTATIN 10 MG TAB PO (21:15)
[2018-04-23] MEDS: ACCU-CHEK XX (02:05)
[2018-04-23] MEDS: FUROSEMIDE 40 MG INJ IV ×2 (05:00→17:24)
[2018-04-23] MEDS: METOPROLOL 5 MG INJ IV (05:02)
[2018-04-23] MEDS: MEROPENEM 1 GM/50ML(PMX) 50 ML IVPB (05:03)
[2018-04-23] MEDS: LEVOTHYROXINE 100 MCG TAB PO (05:03)
[2018-04-23 05:15] LABS: ADD MAN DIFF? NO
[2018-04-23 05:24] LABS: ABNORMAL IP MESSAGE 1; BASOPHIL # 0.1 10^3/ul (0.0-0.1); BASOPHILS % 0.7 % (0.0-2.0); EOSINOPHILS # 0.8 10^3/ul (0.0-0.5); EOSINOPHILS % 6.7 % (0.0-7.0); HEMATOCRIT 35.2 % (37.0-47.0); LYMPHOCYTES # 1.4 10^3/ul (0.8-2.9); LYMPHOCYTES % 12.2 % (15.0-51.0); MEAN CORPUSCULAR HEMOGLOBIN 23.3 pg (29.0-33.0); MEAN CORPUSCULAR HGB CONC 28.4 g/dl (32.0-37.0); MEAN CORPUSCULAR VOLUME 82.1 fl (82.0-101.0); MEAN PLATELET VOLUME 10.3 fl (7.4-10.4); MONOCYTE # 0.9 10^3/ul (0.3-0.9); NEUTROPHIL # 8.2 10^3/ul (1.6-7.5); NEUTROPHILS % 71.7 % (39.0-77.0); PLATELET COUNT 373 10^3/UL (140-415); RED BLOOD COUNT 4.29 10^6/ul (4.20-5.40); RED CELL DISTRIBUTION WIDTH 19.3 % (11.5-14.5)
[2018-04-23 05:24] LABS: WHITE BLOOD COUNT 11.4 10^3/ul (4.8-10.8)
[2018-04-23 05:25] LABS: ALANINE AMINOTRANSFERASE 21 IU/L (13-69); ALBUMIN 3.5 g/dl (3.3-4.9); ALBUMIN/GLOBULIN RATIO 0.97; ALKALINE PHOSPHATASE 64 IU/L (42-121); ANION GAP 8 (5-13); ASPARTATE AMINO TRANSFERASE 24 IU/L (15-46); BILIRUBIN,INDIRECT 0.2 mg/dl (0-1.1); BILIRUBIN,TOTAL 0.2 mg/dl (0.2-1.3); BLOOD UREA NITROGEN 22 mg/dl (7-20); CALCIUM 8.4 mg/dl (8.4-10.2); CARBON DIOXIDE 38 mmol/L (21-31); CHLORIDE 95 mmol/L (97-110); CREATININE 0.78 mg/dl (0.44-1.00); GLUCOSE 133 mg/dl (70-220); MAGNESIUM 1.9 mg/dl (1.7-2.5); POTASSIUM 4.1 mmol/L (3.5-5.1); SODIUM 141 mmol/L (135-144); TOTAL PROTEIN 7.1 g/dl (6.1-8.1)
[2018-04-23 05:32] LABS: B-TYPE NATRIURETIC PEPTIDE 4410 PG/ML (0-125)
[2018-04-23 06:11] LABS: POSITIVE DIFF @See below
[2018-04-23] MEDS: INSULIN ASPART [NOVOLOG] 3 ML PEN SC ×4 (08:00→21:23)
[2018-04-23] MEDS: ALBUTEROL 0.083% (NEB) 2.5 MG/3 ML AMP NEB ×3 (08:00→20:47)
[2018-04-23] MEDS: FAMOTIDINE 20 MG TAB PO (08:19)
[2018-04-23] MEDS: DOCUSATE SODIUM 100 MG CAP PO ×2 (08:19→21:13)
[2018-04-23] MEDS: POTASSIUM CHLORIDE (SR) 20 MEQ TAB PO ×2 (08:19→21:14)
[2018-04-23] MEDS: MAGNESIUM OXIDE 400 MG TAB PO (08:19)
[2018-04-23] MEDS: ASPIRIN (EC) 325 MG TAB PO (08:19)
[2018-04-23] MEDS: ENOXAPARIN 40 MG/0.4 ML SYG SC (08:41)
[2018-04-23] MEDS: MAGNESIUM SULFATE 2 GM/50 ML 50 ML IVPB (10:35)
[2018-04-23 13:16] LABS: PROCALCITONIN 0.17 ng/mL (<0.10)
[2018-04-23] MEDS: ATORVASTATIN 10 MG TAB PO (21:13)
[2018-04-24] MEDS: ACCU-CHEK XX (01:43)
[2018-04-24 05:12] LABS: ADD MAN DIFF? NO
[2018-04-24 05:17] LABS: ABNORMAL IP MESSAGE 1; BASOPHIL # 0.1 10^3/ul (0.0-0.1); BASOPHILS % 0.5 % (0.0-2.0); EOSINOPHILS # 0.7 10^3/ul (0.0-0.5); EOSINOPHILS % 5.5 % (0.0-7.0); HEMATOCRIT 36.1 % (37.0-47.0); HEMOGLOBIN 10.4 g/dl (12.0-16.0); LYMPHOCYTES # 1.1 10^3/ul (0.8-2.9); LYMPHOCYTES % 9.5 % (15.0-51.0); MEAN CORPUSCULAR HEMOGLOBIN 23.3 pg (29.0-33.0); MEAN CORPUSCULAR HGB CONC 28.8 g/dl (32.0-37.0); MEAN CORPUSCULAR VOLUME 80.9 fl (82.0-101.0); MEAN PLATELET VOLUME 10.3 fl (7.4-10.4); MONOCYTE # 0.8 10^3/ul (0.3-0.9); NEUTROPHIL # 9.1 10^3/ul (1.6-7.5); NEUTROPHILS % 76.7 % (39.0-77.0); PLATELET COUNT 362 10^3/UL (140-415); RED BLOOD COUNT 4.46 10^6/ul (4.20-5.40); RED CELL DISTRIBUTION WIDTH 19.2 % (11.5-14.5)
[2018-04-24 05:17] LABS: WHITE BLOOD COUNT 11.9 10^3/ul (4.8-10.8)
[2018-04-24 05:31] LABS: POSITIVE DIFF @See below
[2018-04-24 05:48] LABS: B-TYPE NATRIURETIC PEPTIDE 3660 PG/ML (0-125)
[2018-04-24 05:51] LABS: PHOSPHORUS 3.6 mg/dl (2.5-4.9)
[2018-04-24 05:54] LABS: ANION GAP 10 (5-13); BLOOD UREA NITROGEN 17 mg/dl (7-20); CALCIUM 8.3 mg/dl (8.4-10.2); CARBON DIOXIDE 36 mmol/L (21-31); CHLORIDE 92 mmol/L (97-110); CREATININE 0.67 mg/dl (0.44-1.00); GLUCOSE 143 mg/dl (70-220); MAGNESIUM 2.3 mg/dl (1.7-2.5); POTASSIUM 3.9 mmol/L (3.5-5.1); SODIUM 138 mmol/L (135-144)
[2018-04-24] MEDS: LEVOTHYROXINE 100 MCG TAB PO (06:16)
[2018-04-24] MEDS: INSULIN ASPART [NOVOLOG] 3 ML PEN SC ×4 (07:56→21:00)
[2018-04-24] MEDS: MAGNESIUM OXIDE 400 MG TAB PO (08:46)
[2018-04-24] MEDS: DOCUSATE SODIUM 100 MG CAP PO ×2 (08:46→21:17)
[2018-04-24] MEDS: ASPIRIN (EC) 325 MG TAB PO (08:47)
[2018-04-24] MEDS: POTASSIUM CHLORIDE (SR) 20 MEQ TAB PO (08:47)
[2018-04-24] MEDS: FAMOTIDINE 20 MG TAB PO (08:47)
[2018-04-24] MEDS: FUROSEMIDE 40 MG TAB PO (08:48)
[2018-04-24] MEDS: ENOXAPARIN 40 MG/0.4 ML SYG SC (08:49)
[2018-04-24] MEDS: ALBUTEROL 0.083% (NEB) 2.5 MG/3 ML AMP NEB (09:01)
[2018-04-24] MEDS: COLLAGENASE 5 GM (UD JAR) TOP (14:30)
[2018-04-24] MEDS: BALSAM PERU/CASTOR OIL 60 GM TUBE TOP (15:30)
[2018-04-24 19:15] LABS: UR CLARITY TURBID (CLEAR); UR COLOR AMBER (YELLOW); UR SPECIFIC GRAVITY (Dip) 1.014 (1.003-1.030)
[2018-04-24 19:16] LABS: UR BILIRUBIN (Dip) NEGATIVE (NEGATIVE); UR BLOOD (Dip) 3+ mg/dL (NEGATIVE); UR GLUCOSE (Dip) 1+ mg/dL (NEGATIVE); UR KETONES (Dip) TRACE mg/dL (NEGATIVE); UR NITRITE (Dip) NEGATIVE (NEGATIVE); UR TOTAL PROTEIN (Dip) 3+ mg/dl (NEGATIVE); UR UROBILINOGEN (Dip) NEGATIVE (NEGATIVE)
[2018-04-24 19:17] LABS: ADD UMIC YES; UR ASCORBIC ACID NEGATIVE (NEGATIVE); UR LEUKOCYTE ESTERASE (Dip) NEGATIVE Leu/ul (NEGATIVE); URINE RBCS >200 /HPF (0)
[2018-04-24] MEDS: ATORVASTATIN 10 MG TAB PO (21:19)
[2018-04-25] MEDS: ACCU-CHEK XX (02:00)
[2018-04-25] MEDS: LEVOTHYROXINE 100 MCG TAB PO (06:12)
[2018-04-25 06:21] LABS: ADD MAN DIFF? NO
[2018-04-25 06:29] LABS: ABNORMAL IP MESSAGE 1; BASOPHIL # 0.1 10^3/ul (0.0-0.1); BASOPHILS % 0.6 % (0.0-2.0); EOSINOPHILS # 0.9 10^3/ul (0.0-0.5); HEMATOCRIT 35.6 % (37.0-47.0); HEMOGLOBIN 10.2 g/dl (12.0-16.0); LYMPHOCYTES # 1.4 10^3/ul (0.8-2.9); LYMPHOCYTES % 12.5 % (15.0-51.0); MEAN CORPUSCULAR HEMOGLOBIN 23.6 pg (29.0-33.0); MEAN CORPUSCULAR HGB CONC 28.7 g/dl (32.0-37.0); MEAN CORPUSCULAR VOLUME 82.2 fl (82.0-101.0); MEAN PLATELET VOLUME 10.8 fl (7.4-10.4); NEUTROPHIL # 7.6 10^3/ul (1.6-7.5); NEUTROPHILS % 69.2 % (39.0-77.0); PLATELET COUNT 355 10^3/UL (140-415); RED BLOOD COUNT 4.33 10^6/ul (4.20-5.40); RED CELL DISTRIBUTION WIDTH 19.6 % (11.5-14.5)
[2018-04-25 06:39] LABS: POSITIVE DIFF @See below
[2018-04-25 06:54] LABS: ANION GAP 7 (5-13); BLOOD UREA NITROGEN 19 mg/dl (7-20); CALCIUM 8.4 mg/dl (8.4-10.2); CARBON DIOXIDE 35 mmol/L (21-31); CHLORIDE 95 mmol/L (97-110); CREATININE 0.66 mg/dl (0.44-1.00); GLUCOSE 144 mg/dl (70-220); MAGNESIUM 2.3 mg/dl (1.7-2.5); POTASSIUM 3.9 mmol/L (3.5-5.1); SODIUM 137 mmol/L (135-144)
[2018-04-25 06:56] LABS: B-TYPE NATRIURETIC PEPTIDE 2780 PG/ML (0-125)
[2018-04-25 07:02] LABS: INR 1.09; PROTIME 14.2 Sec (11.9-14.9); PT RATIO 1.1
[2018-04-25 07:21] LABS: PARTIAL THROMBOPLASTIN TIME 31.6 Sec (23.0-35.0)
[2018-04-25] MEDS: INSULIN ASPART [NOVOLOG] 3 ML PEN SC ×4 (07:59→21:19)
[2018-04-25] MEDS: POTASSIUM CHLORIDE (SR) 20 MEQ TAB PO (10:28)
[2018-04-25] MEDS: DOCUSATE SODIUM 100 MG CAP PO ×2 (10:28→21:06)
[2018-04-25] MEDS: MAGNESIUM OXIDE 400 MG TAB PO (10:28)
[2018-04-25] MEDS: ASPIRIN (EC) 81 MG TAB PO (10:28)
[2018-04-25] MEDS: FAMOTIDINE 20 MG TAB PO (10:30)
[2018-04-25] MEDS: FUROSEMIDE 40 MG TAB PO (10:31)
[2018-04-25] MEDS: ENOXAPARIN 40 MG/0.4 ML SYG SC (10:45)
[2018-04-25] MEDS: BALSAM PERU/CASTOR OIL 60 GM TUBE TOP (13:05)
[2018-04-25] MEDS: COLLAGENASE 5 GM (UD JAR) TOP (13:05)
[2018-04-25] MEDS ORDERED: BISACODYL 10 MG SUPP PR (15:00)
[2018-04-25] MEDS ORDERED: NA PHOSPHATE/BIPHOS 133 ML ENEMA PR (15:00)
[2018-04-25] MEDS: MAGNESIUM HYDROXIDE 30ML CUP PO (17:01)
[2018-04-25] MEDS: ATORVASTATIN 10 MG TAB PO (21:06)
[2018-04-26] MEDS: ACCU-CHEK XX (02:00)
[2018-04-26 06:20] LABS: ADD MAN DIFF? NO
[2018-04-26 06:35] LABS: BASOPHIL # 0.1 10^3/ul (0.0-0.1); BASOPHILS % 0.8 % (0.0-2.0); EOSINOPHILS # 0.6 10^3/ul (0.0-0.5); EOSINOPHILS % 6.1 % (0.0-7.0); HEMOGLOBIN 10.3 g/dl (12.0-16.0); LYMPHOCYTES # 1.3 10^3/ul (0.8-2.9); LYMPHOCYTES % 13.9 % (15.0-51.0); MEAN CORPUSCULAR HEMOGLOBIN 23.7 pg (29.0-33.0); MEAN CORPUSCULAR HGB CONC 29.4 g/dl (32.0-37.0); MEAN CORPUSCULAR VOLUME 80.6 fl (82.0-101.0); MEAN PLATELET VOLUME 11.5 fl (7.4-10.4); MONOCYTE # 0.9 10^3/ul (0.3-0.9); MONOCYTES % 9.2 % (0.0-11.0); NEUTROPHIL # 6.6 10^3/ul (1.6-7.5); NEUTROPHILS % 69.4 % (39.0-77.0); PLATELET COUNT 355 10^3/UL (140-415); RED BLOOD COUNT 4.34 10^6/ul (4.20-5.40); RED CELL DISTRIBUTION WIDTH 19.4 % (11.5-14.5)
[2018-04-26 06:35] LABS: WHITE BLOOD COUNT 9.6 10^3/ul (4.8-10.8)
[2018-04-26 06:38] LABS: ANION GAP 11 (5-13); BLOOD UREA NITROGEN 21 mg/dl (7-20); CALCIUM 8.6 mg/dl (8.4-10.2); CARBON DIOXIDE 32 mmol/L (21-31); CHLORIDE 95 mmol/L (97-110); CREATININE 0.72 mg/dl (0.44-1.00); GLUCOSE 151 mg/dl (70-220); MAGNESIUM 2.3 mg/dl (1.7-2.5); SODIUM 138 mmol/L (135-144)
[2018-04-26] MEDS: LEVOTHYROXINE 100 MCG TAB PO (06:46)
[2018-04-26] MEDS: INSULIN ASPART [NOVOLOG] 3 ML PEN SC ×4 (08:45→20:25)
[2018-04-26] MEDS: POTASSIUM CHLORIDE (SR) 20 MEQ TAB PO (09:45)
[2018-04-26] MEDS: ASPIRIN (EC) 81 MG TAB PO (09:45)
[2018-04-26] MEDS: DOCUSATE SODIUM 100 MG CAP PO ×2 (09:45→20:11)
[2018-04-26] MEDS: FUROSEMIDE 40 MG TAB PO (09:45)
[2018-04-26] MEDS: FAMOTIDINE 20 MG TAB PO (09:45)
[2018-04-26 09:46] LABS: B-TYPE NATRIURETIC PEPTIDE 2990 PG/ML (0-125)
[2018-04-26] MEDS: MAGNESIUM OXIDE 400 MG TAB PO (09:46)
[2018-04-26] MEDS: BALSAM PERU/CASTOR OIL 60 GM TUBE TOP (09:47)
[2018-04-26] MEDS: COLLAGENASE 5 GM (UD JAR) TOP (09:47)
[2018-04-26] MEDS: ENOXAPARIN 40 MG/0.4 ML SYG SC (09:58)
[2018-04-26] MEDS: ATORVASTATIN 10 MG TAB PO (20:11)
[2018-04-27] MEDS: ACCU-CHEK XX (01:35)
[2018-04-27] MEDS: LEVOTHYROXINE 100 MCG TAB PO (05:41)
[2018-04-27 06:32] LABS: ADD MAN DIFF? NO
[2018-04-27 06:48] LABS: ABNORMAL IP MESSAGE 1; BASOPHIL # 0.1 10^3/ul (0.0-0.1); BASOPHILS % 0.7 % (0.0-2.0); EOSINOPHILS # 0.5 10^3/ul (0.0-0.5); EOSINOPHILS % 5.3 % (0.0-7.0); HEMATOCRIT 35.2 % (37.0-47.0); HEMOGLOBIN 10.1 g/dl (12.0-16.0); LYMPHOCYTES # 1.3 10^3/ul (0.8-2.9); LYMPHOCYTES % 13.2 % (15.0-51.0); MEAN CORPUSCULAR HEMOGLOBIN 23.3 pg (29.0-33.0); MEAN CORPUSCULAR HGB CONC 28.7 g/dl (32.0-37.0); MEAN CORPUSCULAR VOLUME 81.1 fl (82.0-101.0); MEAN PLATELET VOLUME 11.6 fl (7.4-10.4); MONOCYTE # 0.9 10^3/ul (0.3-0.9); MONOCYTES % 8.7 % (0.0-11.0); NEUTROPHILS % 71.6 % (39.0-77.0); PLATELET COUNT 362 10^3/UL (140-415); RED BLOOD COUNT 4.34 10^6/ul (4.20-5.40); RED CELL DISTRIBUTION WIDTH 19.4 % (11.5-14.5)
[2018-04-27 06:48] LABS: WHITE BLOOD COUNT 9.7 10^3/ul (4.8-10.8)
[2018-04-27 06:52] LABS: POSITIVE DIFF @See below
[2018-04-27 07:06] LABS: ANION GAP 7 (5-13); BLOOD UREA NITROGEN 20 mg/dl (7-20); CALCIUM 8.7 mg/dl (8.4-10.2); CARBON DIOXIDE 32 mmol/L (21-31); CHLORIDE 99 mmol/L (97-110); CREATININE 0.68 mg/dl (0.44-1.00); GLUCOSE 155 mg/dl (70-220); MAGNESIUM 2.2 mg/dl (1.7-2.5); POTASSIUM 4.1 mmol/L (3.5-5.1); SODIUM 138 mmol/L (135-144)
[2018-04-27 07:14] LABS: B-TYPE NATRIURETIC PEPTIDE 3330 PG/ML (0-125)
[2018-04-27] MEDS: INSULIN ASPART [NOVOLOG] 3 ML PEN SC ×4 (08:11→20:21)
[2018-04-27] MEDS: ASPIRIN (EC) 81 MG TAB PO (08:28)
[2018-04-27] MEDS: FUROSEMIDE 40 MG TAB PO (08:29)
[2018-04-27] MEDS: FAMOTIDINE 20 MG TAB PO (08:29)
[2018-04-27] MEDS: POTASSIUM CHLORIDE (SR) 20 MEQ TAB PO (08:30)
[2018-04-27] MEDS: DOCUSATE SODIUM 100 MG CAP PO ×2 (08:30→20:12)
[2018-04-27] MEDS: COLLAGENASE 5 GM (UD JAR) TOP (08:30)
[2018-04-27] MEDS: MAGNESIUM OXIDE 400 MG TAB PO (08:30)
[2018-04-27] MEDS: BALSAM PERU/CASTOR OIL 60 GM TUBE TOP (08:30)
[2018-04-27] MEDS: ENOXAPARIN 40 MG/0.4 ML SYG SC (08:32)
[2018-04-27] MEDS ORDERED: POTASSIUM CHLORIDE 20 MEQ POWDER FOR ORAL SOLN (09:43)
[2018-04-27] MEDS: FUROSEMIDE 20 MG INJ IV (09:52)
[2018-04-27] MEDS: POTASSIUM CHLORIDE 20 MEQ POWDER FOR ORAL SOLN PO (09:52)
[2018-04-27] MEDS: ATORVASTATIN 10 MG TAB PO (20:12)
[2018-04-27] MEDS: ZOLPIDEM 5 MG TAB PO (20:13)
[2018-04-28] MEDS: ACCU-CHEK XX (01:37)
[2018-04-28] MEDS: LEVOTHYROXINE 100 MCG TAB PO (05:25)
[2018-04-28 06:07] LABS: ADD MAN DIFF? NO
[2018-04-28 06:09] LABS: WHITE BLOOD COUNT 10.6 10^3/ul (4.8-10.8)
[2018-04-28 06:09] LABS: ABNORMAL IP MESSAGE 1; BASOPHIL # 0.1 10^3/ul (0.0-0.1); BASOPHILS % 0.6 % (0.0-2.0); EOSINOPHILS # 0.6 10^3/ul (0.0-0.5); EOSINOPHILS % 5.4 % (0.0-7.0); HEMOGLOBIN 10.3 g/dl (12.0-16.0); LYMPHOCYTES # 1.4 10^3/ul (0.8-2.9); LYMPHOCYTES % 13.4 % (15.0-51.0); MEAN CORPUSCULAR HEMOGLOBIN 23.5 pg (29.0-33.0); MEAN CORPUSCULAR HGB CONC 28.6 g/dl (32.0-37.0); MEAN CORPUSCULAR VOLUME 82.2 fl (82.0-101.0); MEAN PLATELET VOLUME 11.9 fl (7.4-10.4); MONOCYTE # 0.9 10^3/ul (0.3-0.9); MONOCYTES % 8.4 % (0.0-11.0); NEUTROPHIL # 7.6 10^3/ul (1.6-7.5); NEUTROPHILS % 71.5 % (39.0-77.0); PLATELET COUNT 400 10^3/UL (140-415); RED BLOOD COUNT 4.38 10^6/ul (4.20-5.40); RED CELL DISTRIBUTION WIDTH 19.3 % (11.5-14.5)
[2018-04-28 06:11] LABS: POSITIVE DIFF @See below
[2018-04-28 06:44] LABS: ANION GAP 13 (5-13); BLOOD UREA NITROGEN 22 mg/dl (7-20); CALCIUM 8.6 mg/dl (8.4-10.2); CARBON DIOXIDE 33 mmol/L (21-31); CHLORIDE 94 mmol/L (97-110); CREATININE 0.88 mg/dl (0.44-1.00); GLUCOSE 158 mg/dl (70-220); MAGNESIUM 2.1 mg/dl (1.7-2.5); POTASSIUM 4.1 mmol/L (3.5-5.1); SODIUM 140 mmol/L (135-144)
[2018-04-28 06:47] LABS: B-TYPE NATRIURETIC PEPTIDE 2730 PG/ML (0-125)
[2018-04-28] MEDS: INSULIN ASPART [NOVOLOG] 3 ML PEN SC ×2 (08:02→12:01)
[2018-04-28] MEDS: MAGNESIUM OXIDE 400 MG TAB PO (09:20)
[2018-04-28] MEDS: DOCUSATE SODIUM 100 MG CAP PO (09:21)
[2018-04-28] MEDS: FAMOTIDINE 20 MG TAB PO (09:21)
[2018-04-28] MEDS: FUROSEMIDE 40 MG TAB PO (09:21)
[2018-04-28] MEDS: ASPIRIN (EC) 81 MG TAB PO (09:21)
[2018-04-28] MEDS: BALSAM PERU/CASTOR OIL 60 GM TUBE TOP (09:22)
[2018-04-28] MEDS: COLLAGENASE 5 GM (UD JAR) TOP (09:22)
[2018-04-28] MEDS: ENOXAPARIN 40 MG/0.4 ML SYG SC (09:23)
== END 2018-04-28 14:11 | disposition home or self-care (01) | DRG 291 ==
LOC: TEL 20:11 → ICU 04-18 06:28 → E/R 16:58 → ICU 04-17 11:59 → 6WM 04-20 22:37 → TEL 04-16 02:42
DX: I11.0 Hypertensive heart disease with heart failure (principal); J96.02 Acute respiratory failure with hypercapnia; J96.01 Acute respiratory failure with hypoxia; N39.0 Urinary tract infection, site not specified; I50.41 Acute combined systolic (congestive) and diastolic (congestive) heart failure; J20.9 Acute bronchitis, unspecified; B96.20 Unspecified Escherichia coli [E. coli] as the cause of diseases classified elsewhere; D64.9 Anemia, unspecified; E03.9 Hypothyroidism, unspecified; E78.5 Hyperlipidemia, unspecified; E11.51 Type 2 diabetes mellitus with diabetic peripheral angiopathy without gangrene; G80.9 Cerebral palsy, unspecified; I25.10 Atherosclerotic heart disease of native coronary artery without angina pectoris; I27.22 Pulmonary hypertension due to left heart disease; I87.2 Venous insufficiency (chronic) (peripheral); M10.9 Gout, unspecified; R41.82 Altered mental status, unspecified; Z16.12 Extended spectrum beta lactamase (ESBL) resistance; Z79.84 Long term (current) use of oral hypoglycemic drugs
CPT/HCPCS: 36600; 71045; 71275; 74230; 80048; 80053; 80061; 80202; 81001; 82550; 82553; 82803; 82962; 83605; 83735; 83880; 84100; 84132; 84145; 84484; 85025; 85610; 85730; 86850; 86900; 86901; 87040; 87070; 87081; 87086; 89220; 92526; 92610; 92611; 93005; 93306; 93970; 94640; 94660; 94664; 96374; 96375; 97110; 97116; 97162; 97530; 99291-25